=== PATIENT | male | born 1945 | race Caucasian/White ===

== ENCOUNTER 2018-07-03 11:50 | Observation (INO) | payer MEDICARE, OTHER ==
[~2018-07-03] VITALS: Ht 175.3 cm; Wt 100.0 kg
[~2018-07-03 11:50] MED LIST: ADV50100 IH; ATOR10TA87 PO; CARV25TA2 PO; CLON-529 PO; DILT180C10 PO; DILT90CA PO; EPLE25TA10 PO; FLUT16SP26 BOTHNARES; LOSA100T57 PO; PANT40SU2 PO; POTA20TA19 PO; SYN0.088T PO; TRIA1CAP6 PO
[2018-07-03 12:26] LABS: BASOPHILS # (AUTO) 0.1 X10'3 (0-0.2); BASOPHILS % (AUTO) 0.7 % (0-1); EOSINOPHILS # (AUTO) 0.2 X10'3 (0-0.9); EOSINOPHILS % (AUTO) 3.4 % (0-6); HEMOGLOBIN 14.1 g/dl (14.0-17.9); LYMPHOCYTES # (AUTO) 1.2 X10'3 (1.1-4.8); LYMPHOCYTES % (AUTO) 17.5 % (21-51); MEAN CORPUSCULAR HEMOGLOBIN 30.4 PG (27.0-31.0); MEAN CORPUSCULAR HGB CONC 33.5 % (33.0-36.5); MEAN CORPUSCULAR VOLUME 90.7 FL (78-98); MEAN PLATELET VOLUME 8.6 FL (7.4-10.4); MONOCYTES # (AUTO) 0.5 X10'3 (0-0.9); MONOCYTES % (AUTO) 7.2 % (2-12); NEUTROPHILS # (AUTO) 4.9 X10'3 (1.8-7.7); NEUTROPHILS % (AUTO) 71.2 % (42-75); PLATELET COUNT 234 X10'3 (140-440); RED BLOOD COUNT 4.64 X10'6 (4.70-6.10); RED CELL DISTRIBUTION WIDTH 14.3 % (11.5-14.5); WHITE BLOOD COUNT 6.9 X10'3 (4.5-11.0)
[2018-07-03 12:38] LABS: PROTHROMBIN TIME 10.6 SECONDS (9.0-12.0)
[2018-07-03 12:39] LABS: PARTIAL THROMBOPLASTIN TIME 31 SECONDS (22-32)
[2018-07-03 12:41] LABS: ALANINE AMINOTRANSFERASE 21 U/L (12-78); ALBUMIN 3.4 G/DL (3.4-5.0); ALBUMIN/GLOBULIN RATIO 0.9 (1.1-1.5); ALKALINE PHOSPHATASE 124 IU/L (46-116); ANION GAP 12 (8-16); ASPARTATE AMINO TRANSFERASE 15 U/L (10-37); BILIRUBIN,TOTAL 0.6 MG/DL (0.1-1.0); BLOOD UREA NITROGEN 19 MG/DL (7-18); BUN/CREATININE RATIO 14.5 (5.4-32.0); CALCIUM 8.6 MG/DL (8.5-10.1); CHLORIDE 108 MMOL/L (99-107); CREATININE 1.31 MG/DL (0.60-1.10); GLUCOSE 142 MG/DL (70-104); SODIUM 146 MMOL/L (135-145); TOTAL CARBON DIOXIDE 26.4 MMOL/L (24-32); TOTAL PROTEIN 7.1 G/DL (6.4-8.2); eGFR 54 ML/MIN
[2018-07-03] MEDS ORDERED: potassium Cl 20 mEq SR tablet PO STA (12:42)
[2018-07-03 12:43] LABS: POTASSIUM 2.5 MMOL/L (3.5-5.1)
[2018-07-03] MEDS ORDERED: magnesium 2GM in 50ml NS 50 ML IV ONE (12:45)
[2018-07-03] MEDS ORDERED: ondansetron/PF 4mg/2ml inj IV ONE (12:55)
[2018-07-03] MEDS ORDERED: normal saline 1000ml 1,000 ML IV ONE (12:55)
[2018-07-03] MEDS ORDERED: ondansetron 4mg rapidly disintigrating tab PO ONE (12:55)
[2018-07-03 13:12] LABS: CLARITY,URINE CLEAR (Clear); COLOR,URINE STRAW (Yellow); GLUCOSE, URINE NEGATIVE (Neg); KETONES,URINE NEGATIVE (Neg); LEUKOCYTE ESTERASE ,URINE NEGATIVE (Neg); NITRITES, URINE NEGATIVE (Neg); OCCULT BLOOD,URINE TRACE-INTACT (Neg); PROTEIN,URINE 100 mg/dl (Neg); UROBILINOGEN,URINE 0.2 E.U/dL (0.2-1.0)
[2018-07-03 13:15] LABS: UA COLLECTION TYPE URINAL
[2018-07-03] MEDS ORDERED: proCHLORperazine 10 MG/2 ml inj IV ONE (13:20)
[2018-07-03] MEDS ORDERED: meclizine 12.5mg tablet PO ONE (13:20)
[2018-07-03 13:27] LABS: BACTERIA,URINE FEW /HPF (Neg); RBC,URINE 0-2 /HPF (0-2); SQUAMOUS EPITHELIAL CELL,UR FEW /LPF (FEW); WBC,URINE 0-4 /HPF (0-4)
[2018-07-03 13:33] LABS: MAGNESIUM 1.4 MG/DL (1.5-2.4)
[2018-07-03] MEDS: potassium 10mEq/100ml NS w/LIDOcaine (10mg/bag) IV SCH ×2 (13:40→15:38)
--- NOTE | 2018-07-03 13:50 | NUR ---
ASSISTING RN WITH PT CARE, PT IS RESTING QUIETLY ON GURNEY, NO N/V AT THIS TIME, HAVE MEDICATED PT PER MD ORDER, WILL HOLD PO MED FOR NOW,
--- NOTE | 2018-07-03 13:52 | NUR ---
GAVE PT WARM BLANKET AND EMESIS BAG, REPORT TO DEVAN HILL
[2018-07-03] MEDS ORDERED: iohexol 350MG/ML 100ml bottle IV ONE (14:45)
--- NOTE | 2018-07-03 14:45 | NUR ---
PATIENT STOOD BY SIDE OF BED WITH STANDBY ASSIST, PATIENT DENIED DIZZYNESS, SKINNER CHEST PAIN
--- NOTE | 2018-07-03 14:47 | NUR ---
PATIENT DENIES PHOTOPHOBIA AT THIS, SUSANNE HEIN RN AT BEDSIDE
--- NOTE | 2018-07-03 14:52 | NUR ---
TOP CT SCAN WITH STROKE LIZ RECIO
[2018-07-03] MEDS ORDERED: clopidogrel 300mg tablet PO ONE (15:40)
--- NOTE | 2018-07-03 15:40 | NUR ---
RELIEVING RN FOR BREAK, PT IS RESTING QUIETLY ON GURNEY, RESP EVEN AND UNLABORED
--- NOTE | 2018-07-03 15:53 | NUR ---
pt up at bedside to use urinal, no assist needed, no dizziness, no lightheadedness, pt able to stand without assist
[2018-07-03 16:26] VITALS: BP 171/97
--- NOTE | 2018-07-03 16:30 | NUR ---
PATIENT STOOD UP AT BEDSIDE TO URINATE DENIED DIZZYNESS, SKINNER, NAUSEA, BLURRED VISION PATIENT HAS BEEN UP TO URINATE STANDING AT BEDSIDE 4 TIMES WITH STANDBY ASSIST VOIDED 200 ML CLEAR BARELY YELLOW URINE EACH TIME TOTAL 1 LITER OUT PLUS LARGE INCONTINENCE WHEN BACK FROM CT SCAN WITH STROKE RN
[2018-07-03] MEDS ORDERED: ACET-2119 PO (16:52)
[2018-07-03] MEDS ORDERED: FLEC100T2 PO (16:52)
[2018-07-03] MEDS ORDERED: LEVO100T9 PO (16:52)
[2018-07-03] MEDS ORDERED: ALBU8.5H8 IH (16:52)
[2018-07-03] MEDS ORDERED: FURO20TA4 PO (16:52)
[2018-07-03] MEDS ORDERED: CHOL400T14 PO (16:52)
[2018-07-03] MEDS ORDERED: normal saline 1000ml 1,000 ML IV SCH (17:43)
[2018-07-03] MEDS ORDERED: potassium Cl 40MEQ/NS 500ml 500 ML IV PRN ×2 (17:45)
[2018-07-03] MEDS ORDERED: mag hydrox/Alum hydrox/simeth 30ml oral suspension PO PRN (17:45)
[2018-07-03] MEDS ORDERED: ondansetron/PF 4mg/2ml inj IV PRN (17:45)
[2018-07-03] MEDS ORDERED: potassium Cl 20 mEq SR tablet PO PRN ×2 (17:45)
[2018-07-03] MEDS ORDERED: magnesium Cl slow-release 64mg tablet PO PRN (17:45)
[2018-07-03] MEDS ORDERED: non-formulary drug (Albuterol Sulfate (Proair Hfa) 2 PUFFS) IH PRN (17:45)
[2018-07-03] MEDS ORDERED: magnesium 2GM in 50ml NS 50 ML IV PRN (17:45)
[2018-07-03] MEDS ORDERED: magnesium 4gm in 100ml NS 100 ML IV PRN (17:45)
[2018-07-03] MEDS ORDERED: acetaminophen 325mg tablet PO PRN ×2 (17:45)
[2018-07-03] MEDS ORDERED: magnesium hydroxide 30ml (MOM) UD suspension PO PRN (17:45)
--- NOTE | 2018-07-03 17:54 | NUR ---
DR ESCOBAR IN ROOM AND ASKED ME TO AMBULATE PATIENT. MARIAJOSE HILL AMBULATED WITH PULSE OX ON WITH DR ESCOBAR PRESENT I WAS BEING RELIEVED FOR BREAK
[2018-07-03] MEDS ORDERED: albuterol 2.5 MG/3 ML nebule NEB PRN (18:05)
--- NOTE | 2018-07-03 18:21 | NUR ---
DR ESCOBAR INFORMED PT WAS LEAVING AMA, DR GREEN INTO PT ROOM SPOKE WITH PT ABOUT LEAVING, PT SIGNED AMA, SPOUSE AT BEDSIDE TO TRANSPORT PT HOME, PT STABLE WITH STEADY GAIT AMBULATED OUT TO CAR, CHARGE KEVIN MADE AWARE OF PT LEAVING AMA.
[2018-07-03] MEDS ORDERED: albuterol 2.5 MG/3 ML nebule NEB SCH (19:00)
[2018-07-03] MEDS ORDERED: carVEDilol 12.5mg tablet PO SCH (20:00)
[2018-07-03] MEDS ORDERED: non-formulary drug (Fluticasone/Salmeterol* (Advair 100-50 Diskus*) 1 INH) IH SCH (20:00)
[2018-07-03] MEDS ORDERED: non-formulary drug (Carvedilol 1 TABLET) PO SCH (20:00)
[2018-07-03] MEDS ORDERED: cloNIDine 0.1 mg tablet PO SCH (20:00)
[2018-07-03] MEDS ORDERED: FLECAINIDE ACETATE PO SCH (20:00)
[2018-07-03] MEDS ORDERED: heparin, porcine 5000 units/ml vial SQ SCH (20:00)
[2018-07-03] MEDS ORDERED: flecainide 50mg tablet PO SCH (20:00)
[2018-07-03] MEDS ORDERED: BUDESONIDE 0.25 MG/2 ML AMPUL.NEB IH SCH (21:00)
[2018-07-03] MEDS ORDERED: acetaminophen 325mg tablet PO SCH (21:00)
[2018-07-03] MEDS ORDERED: atorvastatin 10mg tablet PO SCH (21:00)
[2018-07-04] MEDS ORDERED: pantoprazole 40mg Tablet.DR PO SCH (07:30)
[2018-07-04] MEDS ORDERED: DILTIAZEM HCL 180 MG PO SCH (08:00)
[2018-07-04] MEDS ORDERED: diltiazem CD 180mg cap (once-daily) PO SCH (08:00)
[2018-07-04] MEDS ORDERED: non-formulary drug (Pantoprazole Sodium (Protonix) 40 MG) PO SCH (08:00)
[2018-07-04] MEDS ORDERED: furosemide 20MG tablet PO SCH (08:00)
[2018-07-04] MEDS ORDERED: K and/or MAG REPLACEMENT MC SCH (08:00)
[2018-07-04] MEDS ORDERED: levoTHYROXINE 100mcg tablet PO SCH (08:00)
[2018-07-04] MEDS ORDERED: EPLERENONE 50 MG PO SCH ×2 (08:00)
[2018-07-04] MEDS ORDERED: losartan 50mg tablet PO SCH (08:00)
[2018-07-04] MEDS ORDERED: LOSARTAN POTASSIUM PO SCH (08:00)
== END 2018-07-03 18:35 | disposition left against medical advice (07) ==
LOC: ER 11:50 → ED HOLD 17:43
PROVIDERS: ADMIT Internal Medicine; ATTEND Internal Medicine
DX: R42 Dizziness and giddiness (principal); E87.6 Hypokalemia; E78.5 Hyperlipidemia, unspecified; E83.42 Hypomagnesemia; I13.0 Hypertensive heart and chronic kidney disease with heart failure and stage 1 through stage 4 chronic kidney disease, or unspecified chronic kidney disease; I50.9 Heart failure, unspecified; N18.3 Chronic kidney disease, stage 3 (moderate); I48.91 Unspecified atrial fibrillation; J45.909 Unspecified asthma, uncomplicated; I25.10 Atherosclerotic heart disease of native coronary artery without angina pectoris; H53.2 Diplopia
CPT/HCPCS: 36415; 70496; 70498; 71045; 80053; 81001; 83735; 83880; 84484; 85025; 85610; 85730; 93005; 96365; 96368; 96375; 99284; G0378; J0780; J2405; J3475; J3480; J8597; Q9967

== ENCOUNTER 2019-02-20 13:35 | Emergency (ER) | payer MEDICARE, OTHER ==
[~2019-02-20] VITALS: Ht 175.3 cm; Wt 98.0 kg
[~2019-02-20 13:35] MED LIST changes: +ACET-2119 PO; +ALBU8.5H8 IH; +CHOL400T14 PO; -DILT90CA PO; +FLEC100T2 PO; +FURO20TA4 PO; +LEVO100T9 PO; -SYN0.088T PO; -TRIA1CAP6 PO
[2019-02-20 14:14] LABS: BASOPHILS # (AUTO) 0.1 X10'3 (0-0.2); BASOPHILS % (AUTO) 0.6 % (0-1); EOSINOPHILS # (AUTO) 0.1 X10'3 (0-0.9); EOSINOPHILS % (AUTO) 1.3 % (0-6); HEMOGLOBIN 14.8 g/dl (14.0-17.9); LYMPHOCYTES % (AUTO) 10.9 % (21-51); MEAN CORPUSCULAR HEMOGLOBIN 30.2 PG (27.0-31.0); MEAN CORPUSCULAR HGB CONC 32.9 g/dL (33.0-36.5); MEAN CORPUSCULAR VOLUME 91.7 FL (78-98); MONOCYTES # (AUTO) 0.6 X10'3 (0-0.9); MONOCYTES % (AUTO) 6.1 % (2-12); NEUTROPHILS # (AUTO) 7.3 X10'3 (1.8-7.7); NEUTROPHILS % (AUTO) 81.1 % (42-75); PLATELET COUNT 226 X10'3 (140-440); RED BLOOD COUNT 4.91 X10'6 (4.70-6.10); RED CELL DISTRIBUTION WIDTH 14.1 % (11.5-14.5)
[2019-02-20 14:18] LABS: CLARITY,URINE CLOUDY (Clear); COLOR,URINE RED (Yellow); GLUCOSE, URINE NEGATIVE (Neg); KETONES,URINE TRACE mg/dl (Neg); LEUKOCYTE ESTERASE ,URINE LARGE (Neg); OCCULT BLOOD,URINE LARGE (Neg); PROTEIN,URINE 100 mg/dl (Neg)
[2019-02-20 14:19] LABS: UA COLLECTION TYPE VOIDED
[2019-02-20 14:22] LABS: NITRITES, URINE POSITIVE (Neg)
[2019-02-20 14:34] LABS: ALANINE AMINOTRANSFERASE 21 U/L (12-78); ALBUMIN 3.8 G/DL (3.4-5.0); ALBUMIN/GLOBULIN RATIO 1.1 (1.1-1.5); ALKALINE PHOSPHATASE 142 IU/L (46-116); ANION GAP 7 (8-16); ASPARTATE AMINO TRANSFERASE 10 U/L (10-37); BILIRUBIN,TOTAL 0.5 MG/DL (0.1-1.0); BLOOD UREA NITROGEN 20 MG/DL (7-18); CALCIUM 9.3 MG/DL (8.5-10.1); CHLORIDE 109 MMOL/L (99-107); CREATININE 1.33 MG/DL (0.60-1.10); GLUCOSE 119 MG/DL (70-104); SODIUM 143 MMOL/L (135-145); TOTAL CARBON DIOXIDE 26.7 MMOL/L (24-32); TOTAL PROTEIN 7.4 G/DL (6.4-8.2); eGFR 53 ML/MIN
[2019-02-20 14:34] LABS: RBC,URINE TNTC /HPF (0-2); WBC,URINE 30-50 /HPF (0-4)
[2019-02-20 14:35] LABS: WBC CLUMPS,URINE MODERATE /HPF (NEGATIVE)
[2019-02-20 14:40] LABS: BACTERIA,URINE FEW /HPF (Neg); SQUAMOUS EPITHELIAL CELL,UR FEW /LPF (FEW)
[2019-02-20 14:42] LABS: TRANSITIONAL EPI CELLS,URINE FEW /HPF
[2019-02-20] MEDS ORDERED: CefTRIAXone/D5W-Rocephin 1gm 50 ML IV ONE (15:50)
[2019-02-20] MEDS ORDERED: CEPH250T PO (15:53)
[2019-02-20 17:17] VITALS: BP 155/98
== END 2019-02-20 17:37 | disposition home or self-care (01) ==
LOC: ER 13:36
DX: N39.0 Urinary tract infection, site not specified (principal); R31.9 Hematuria, unspecified; N32.89 Other specified disorders of bladder; I48.91 Unspecified atrial fibrillation; I11.0 Hypertensive heart disease with heart failure; I50.9 Heart failure, unspecified; J45.909 Unspecified asthma, uncomplicated; Z98.890 Other specified postprocedural states; Z88.6 Allergy status to analgesic agent; Z79.899 Other long term (current) drug therapy
CPT/HCPCS: 36415; 80053; 81001; 83605; 85025; 85610; 87040; 87088; 96365; 99283; J0696

== ENCOUNTER 2019-03-07 02:57 | Emergency (ER) | payer MEDICARE, OTHER ==
[~2019-03-07] VITALS: Ht 177.8 cm; Wt 90.9 kg
--- NOTE | 2019-03-07 03:43 | NUR ---
bladder scan done post urination. 999mls. dr. nam notified. he wants to a irizarry cath placed waiting for that order.
[2019-03-07 04:30] LABS: BASOPHILS # (AUTO) 0.1 X10'3 (0-0.2); BASOPHILS % (AUTO) 0.6 % (0-1); EOSINOPHILS # (AUTO) 0.1 X10'3 (0-0.9); EOSINOPHILS % (AUTO) 0.5 % (0-6); HEMATOCRIT 44.8 % (42.0-52.0); LYMPHOCYTES % (AUTO) 8.5 % (21-51); MEAN CORPUSCULAR HEMOGLOBIN 30.7 PG (27.0-31.0); MEAN CORPUSCULAR HGB CONC 33.4 g/dL (33.0-36.5); MEAN CORPUSCULAR VOLUME 91.8 FL (78-98); MEAN PLATELET VOLUME 8.5 FL (7.4-10.4); NEUTROPHILS # (AUTO) 9.4 X10'3 (1.8-7.7); NEUTROPHILS % (AUTO) 81.4 % (42-75); PLATELET COUNT 213 X10'3 (140-440); RED BLOOD COUNT 4.88 X10'6 (4.70-6.10); RED CELL DISTRIBUTION WIDTH 14.3 % (11.5-14.5); WHITE BLOOD COUNT 11.6 X10'3 (4.5-11.0)
[2019-03-07 04:32] LABS: ALANINE AMINOTRANSFERASE 29 U/L (12-78); ALBUMIN 3.7 G/DL (3.4-5.0); ALKALINE PHOSPHATASE 153 IU/L (46-116); ANION GAP 11 (8-16); ASPARTATE AMINO TRANSFERASE 14 U/L (10-37); BILIRUBIN,TOTAL 0.8 MG/DL (0.1-1.0); BLOOD UREA NITROGEN 17 MG/DL (7-18); BUN/CREATININE RATIO 12.2 (5.4-32.0); CALCIUM 9.2 MG/DL (8.5-10.1); CHLORIDE 109 MMOL/L (99-107); CREATININE 1.39 MG/DL (0.60-1.10); GLUCOSE 111 MG/DL (70-104); POTASSIUM 3.3 MMOL/L (3.5-5.1); SODIUM 142 MMOL/L (135-145); TOTAL PROTEIN 7.4 G/DL (6.4-8.2); eGFR 50 ML/MIN
[2019-03-07 05:26] LABS: CLARITY,URINE CLOUDY (Clear); COLOR,URINE RED (Yellow); GLUCOSE, URINE NEGATIVE (Neg); KETONES,URINE NEGATIVE (Neg); LEUKOCYTE ESTERASE ,URINE TRACE (Neg); NITRITES, URINE NEGATIVE (Neg); OCCULT BLOOD,URINE LARGE (Neg); PROTEIN,URINE 100 mg/dl (Neg); UA COLLECTION TYPE CLN CATCH MIDSTREAM; UROBILINOGEN,URINE 0.2 E.U/dL (0.2-1.0)
[2019-03-07 05:37] LABS: BACTERIA,URINE NONE SEEN /HPF (Neg); RBC,URINE TNTC /HPF (0-2)
[2019-03-07 05:38] LABS: MUCUS STRANDS NONE SEEN /LPF (Neg); SQUAMOUS EPITHELIAL CELL,UR NONE SEEN /LPF (FEW)
[2019-03-07 05:52] VITALS: BP 162/95
== END 2019-03-07 05:54 | disposition home or self-care (01) ==
LOC: ER 02:58
DX: R33.9 Retention of urine, unspecified (principal); R31.9 Hematuria, unspecified; I11.0 Hypertensive heart disease with heart failure; I50.9 Heart failure, unspecified; J45.909 Unspecified asthma, uncomplicated; Z98.890 Other specified postprocedural states; Z88.6 Allergy status to analgesic agent; Z79.899 Other long term (current) drug therapy
CPT/HCPCS: 36415; 51702; 80053; 81001; 85025; 87088; 99284

== ENCOUNTER 2019-08-03 03:16 | Emergency (ER) | payer MEDICARE, OTHER ==
[~2019-08-03] VITALS: Ht 177.8 cm; Wt 90.9 kg
[2019-08-03] MEDS ORDERED: magnesium 2GM in 50ml NS 50 ML IV ONE (03:20)
[2019-08-03] MEDS ORDERED: diltiazem 5mg/ml 5ml inj. IV ONE (03:20)
[2019-08-03 03:56] LABS: BASOPHILS # (AUTO) 0.1 X10'3 (0-0.2); BASOPHILS % (AUTO) 0.9 % (0-1); EOSINOPHILS # (AUTO) 0.1 X10'3 (0-0.9); EOSINOPHILS % (AUTO) 1.6 % (0-6); HEMATOCRIT 40.8 % (42.0-52.0); HEMOGLOBIN 13.5 g/dl (14.0-17.9); LYMPHOCYTES # (AUTO) 1.5 X10'3 (1.1-4.8); LYMPHOCYTES % (AUTO) 23.3 % (21-51); MEAN CORPUSCULAR HEMOGLOBIN 29.6 PG (27.0-31.0); MEAN CORPUSCULAR HGB CONC 33.2 g/dL (33.0-36.5); MEAN CORPUSCULAR VOLUME 89.2 FL (78-98); MEAN PLATELET VOLUME 8.4 FL (7.4-10.4); MONOCYTES # (AUTO) 0.5 X10'3 (0-0.9); MONOCYTES % (AUTO) 8.1 % (2-12); NEUTROPHILS # (AUTO) 4.4 X10'3 (1.8-7.7); NEUTROPHILS % (AUTO) 66.1 % (42-75); PLATELET COUNT 291 X10'3 (140-440); RED BLOOD COUNT 4.58 X10'6 (4.70-6.10); RED CELL DISTRIBUTION WIDTH 13.9 % (11.5-14.5); WHITE BLOOD COUNT 6.6 X10'3 (4.5-11.0)
[2019-08-03 04:10] LABS: ALANINE AMINOTRANSFERASE 25 U/L (12-78); ALBUMIN 3.4 G/DL (3.4-5.0); ALBUMIN/GLOBULIN RATIO 0.8 (1.1-1.5); ALKALINE PHOSPHATASE 241 IU/L (46-116); ANION GAP 12 (8-16); ASPARTATE AMINO TRANSFERASE 20 U/L (10-37); BILIRUBIN,TOTAL 0.4 MG/DL (0.1-1.0); BLOOD UREA NITROGEN 23 MG/DL (7-18); BUN/CREATININE RATIO 15.4 (5.4-32.0); CALCIUM 9.8 MG/DL (8.5-10.1); CHLORIDE 112 MMOL/L (99-107); CREATININE 1.49 MG/DL (0.60-1.10); GLUCOSE 96 MG/DL (70-104); SODIUM 149 MMOL/L (135-145); TOTAL CARBON DIOXIDE 25.5 MMOL/L (24-32); TOTAL PROTEIN 7.9 G/DL (6.4-8.2); eGFR 46 ML/MIN
[2019-08-03] MEDS ORDERED: potassium 10mEq/100ml NS w/LIDOcaine (10mg/bag) IV ONE (04:15)
[2019-08-03] MEDS ORDERED: normal saline 1000ML IV soln IVB ONE (04:15)
[2019-08-03] MEDS ORDERED: potassium Cl 20 mEq SR tablet PO ONE (04:15)
[2019-08-03 04:18] LABS: MAGNESIUM 1.9 MG/DL (1.5-2.4)
[2019-08-03] MEDS ORDERED: potassium Cl 10 mEq/100mL bag IV ONE (04:20)
[2019-08-03] MEDS ORDERED: POTA20TA19 PO (04:23)
[2019-08-03 04:43] LABS: CLARITY,URINE CLEAR (Clear); COLOR,URINE STRAW (Yellow); GLUCOSE, URINE NEGATIVE (Neg); KETONES,URINE NEGATIVE (Neg); LEUKOCYTE ESTERASE ,URINE SMALL (Neg); NITRITES, URINE NEGATIVE (Neg); OCCULT BLOOD,URINE MODERATE (Neg); PROTEIN,URINE 100 mg/dl (Neg); UA COLLECTION TYPE STRAIGHT CATH; UROBILINOGEN,URINE 0.2 E.U/dL (0.2-1.0)
--- NOTE | 2019-08-03 04:46 | NUR ---
Patient converted from afib to NSR naturally.
[2019-08-03 04:50] LABS: BACTERIA,URINE FEW /HPF (Neg); MUCUS STRANDS NONE SEEN /LPF (Neg); SQUAMOUS EPITHELIAL CELL,UR FEW /LPF (FEW); WBC CLUMPS,URINE FEW /HPF (NEGATIVE)
[2019-08-03 06:42] VITALS: BP 170/95
== END 2019-08-03 07:59 | disposition home or self-care (01) ==
LOC: ER 03:16
DX: I48.91 Unspecified atrial fibrillation (principal); E87.6 Hypokalemia; I11.0 Hypertensive heart disease with heart failure; I50.9 Heart failure, unspecified; J45.909 Unspecified asthma, uncomplicated; E05.90 Thyrotoxicosis, unspecified without thyrotoxic crisis or storm; Z88.6 Allergy status to analgesic agent; Z79.899 Other long term (current) drug therapy
CPT/HCPCS: 36415; 71045; 80053; 81001; 83735; 83880; 84484; 85025; 93005; 96365; 96366; 96368; 99285; J3475; J3480; J7030; 99284

== ENCOUNTER 2019-08-17 03:52 | Emergency (ER) | payer MEDICARE, OTHER ==
[~2019-08-17] VITALS: Ht 177.8 cm; Wt 90.0 kg
[2019-08-17] MEDS ORDERED: hydrALAZINE 20mg/ml inj. IV ONE (04:10)
[2019-08-17 04:24] LABS: BASOPHILS # (AUTO) 0.1 X10'3 (0-0.2); BASOPHILS % (AUTO) 0.9 % (0-1); EOSINOPHILS # (AUTO) 0.1 X10'3 (0-0.9); EOSINOPHILS % (AUTO) 1.5 % (0-6); HEMATOCRIT 42.7 % (42.0-52.0); HEMOGLOBIN 14.1 g/dl (14.0-17.9); LYMPHOCYTES # (AUTO) 1.7 X10'3 (1.1-4.8); LYMPHOCYTES % (AUTO) 26.1 % (21-51); MEAN CORPUSCULAR HEMOGLOBIN 29.3 PG (27.0-31.0); MEAN CORPUSCULAR VOLUME 88.8 FL (78-98); MEAN PLATELET VOLUME 8.2 FL (7.4-10.4); MONOCYTES # (AUTO) 0.5 X10'3 (0-0.9); NEUTROPHILS # (AUTO) 4.1 X10'3 (1.8-7.7); NEUTROPHILS % (AUTO) 63.5 % (42-75); PLATELET COUNT 276 X10'3 (140-440); RED BLOOD COUNT 4.81 X10'6 (4.70-6.10); RED CELL DISTRIBUTION WIDTH 13.9 % (11.5-14.5); WHITE BLOOD COUNT 6.4 X10'3 (4.5-11.0)
[2019-08-17 04:41] LABS: ALANINE AMINOTRANSFERASE 25 U/L (12-78); ALBUMIN 3.7 G/DL (3.4-5.0); ALBUMIN/GLOBULIN RATIO 0.8 (1.1-1.5); ALKALINE PHOSPHATASE 240 IU/L (46-116); ANION GAP 9 (8-16); ASPARTATE AMINO TRANSFERASE 18 U/L (10-37); BILIRUBIN,TOTAL 0.4 MG/DL (0.1-1.0); BLOOD UREA NITROGEN 25 MG/DL (7-18); BUN/CREATININE RATIO 14.8 (5.4-32.0); CALCIUM 9.8 MG/DL (8.5-10.1); CHLORIDE 110 MMOL/L (99-107); CREATININE 1.69 MG/DL (0.60-1.10); GLUCOSE 95 MG/DL (70-104); POTASSIUM 3.3 MMOL/L (3.5-5.1); SODIUM 145 MMOL/L (135-145); TOTAL CARBON DIOXIDE 26.4 MMOL/L (24-32); TOTAL PROTEIN 8.1 G/DL (6.4-8.2); eGFR 40 ML/MIN
[2019-08-17 04:47] VITALS: BP 168/72
[2019-08-17 04:47] LABS: MAGNESIUM 1.7 MG/DL (1.5-2.4)
== END 2019-08-17 05:19 | disposition home or self-care (01) ==
LOC: ER 03:54
DX: I13.0 Hypertensive heart and chronic kidney disease with heart failure and stage 1 through stage 4 chronic kidney disease, or unspecified chronic kidney disease (principal); N18.9 Chronic kidney disease, unspecified; I48.91 Unspecified atrial fibrillation; I50.9 Heart failure, unspecified; J45.909 Unspecified asthma, uncomplicated; Z85.9 Personal history of malignant neoplasm, unspecified; Z98.890 Other specified postprocedural states; Z88.6 Allergy status to analgesic agent; Z88.8 Allergy status to other drugs, medicaments and biological substances; Z79.899 Other long term (current) drug therapy
CPT/HCPCS: 36415; 71045; 80053; 83735; 83880; 85025; 93005; 96374; 99285; J0360; 84484

== ENCOUNTER 2019-11-21 19:15 | Emergency (ER) | payer MEDICARE, OTHER ==
[~2019-11-21] VITALS: Ht 175.3 cm; Wt 80.3 kg
[~2019-11-21 19:15] MED LIST changes: -CLON-529 PO; +CLON0.2T PO; +DILT-35 PO; -DILT180C10 PO; -EPLE25TA10 PO; +EPLE25TA4 PO; +FURO-150 PO; -FURO20TA4 PO; +LEVO250T58 PO; -LOSA100T57 PO
[2019-11-21 20:13] LABS: BASOPHILS # (AUTO) 0.1 X10'3 (0-0.2); BASOPHILS % (AUTO) 0.8 % (0-1); EOSINOPHILS % (AUTO) 0.1 % (0-6); HEMATOCRIT 28.6 % (42.0-52.0); HEMOGLOBIN 9.2 g/dl (14.0-17.9); LYMPHOCYTES # (AUTO) 1.5 X10'3 (1.1-4.8); LYMPHOCYTES % (AUTO) 8.8 % (21-51); MEAN CORPUSCULAR HEMOGLOBIN 29.8 PG (27.0-31.0); MEAN CORPUSCULAR HGB CONC 32.2 g/dL (33.0-36.5); MEAN CORPUSCULAR VOLUME 92.4 FL (78-98); MEAN PLATELET VOLUME 7.9 FL (7.4-10.4); MONOCYTES # (AUTO) 0.8 X10'3 (0-0.9); MONOCYTES % (AUTO) 4.6 % (2-12); NEUTROPHILS # (AUTO) 14.6 X10'3 (1.8-7.7); NEUTROPHILS % (AUTO) 85.7 % (42-75); PLATELET COUNT 386 X10'3 (140-440); RED BLOOD COUNT 3.09 X10'6 (4.70-6.10); RED CELL DISTRIBUTION WIDTH 18.6 % (11.5-14.5)
[2019-11-21 20:22] LABS: ALANINE AMINOTRANSFERASE 21 U/L (12-78); ALBUMIN 2.2 G/DL (3.4-5.0); ALBUMIN/GLOBULIN RATIO 0.5 (1.1-1.5); ALKALINE PHOSPHATASE 384 IU/L (46-116); ANION GAP 8 (8-16); ASPARTATE AMINO TRANSFERASE 18 U/L (10-37); BILIRUBIN,TOTAL 0.4 MG/DL (0.1-1.0); BLOOD UREA NITROGEN 33 MG/DL (7-18); BUN/CREATININE RATIO 11.6 (5.4-32.0); CALCIUM 10.2 MG/DL (8.5-10.1); CHLORIDE 110 MMOL/L (99-107); CREATININE 2.85 MG/DL (0.60-1.10); GLUCOSE 110 MG/DL (70-104); POTASSIUM 4.2 MMOL/L (3.5-5.1); SODIUM 146 MMOL/L (135-145); TOTAL CARBON DIOXIDE 27.9 MMOL/L (24-32); TOTAL PROTEIN 6.7 G/DL (6.4-8.2); eGFR 22 ML/MIN
[2019-11-21 20:55] LABS: CLARITY,URINE SLIGHTLY CLOUDY (Clear); COLOR,URINE YELLOW (Yellow); GLUCOSE, URINE NEGATIVE (Neg); KETONES,URINE NEGATIVE (Neg); LEUKOCYTE ESTERASE ,URINE SMALL (Neg); NITRITES, URINE NEGATIVE (Neg); OCCULT BLOOD,URINE LARGE (Neg); PROTEIN,URINE 100 mg/dl (Neg); UROBILINOGEN,URINE 0.2 E.U/dL (0.2-1.0)
[2019-11-21 21:00] LABS: BACTERIA,URINE FEW /HPF (Neg); RBC,URINE 50-100 /HPF (0-2); SQUAMOUS EPITHELIAL CELL,UR FEW /LPF (FEW); UA COLLECTION TYPE VOIDED; WBC,URINE 0-4 /HPF (0-4)
[2019-11-21 21:34] VITALS: BP 158/93
== END 2019-11-21 21:30 | disposition home or self-care (01) ==
LOC: ER 19:16
DX: R31.9 Hematuria, unspecified (principal); C67.9 Malignant neoplasm of bladder, unspecified; I10 Essential (primary) hypertension; D72.829 Elevated white blood cell count, unspecified; I48.91 Unspecified atrial fibrillation; I50.9 Heart failure, unspecified; I11.0 Hypertensive heart disease with heart failure; J45.909 Unspecified asthma, uncomplicated; Z85.9 Personal history of malignant neoplasm, unspecified; Z98.890 Other specified postprocedural states; Z88.6 Allergy status to analgesic agent; Z88.8 Allergy status to other drugs, medicaments and biological substances; Z79.899 Other long term (current) drug therapy
CPT/HCPCS: 80053; 81001; 85025; 87088; 99283

== ENCOUNTER 2019-11-23 21:55 | Emergency (ER) | payer MEDICARE, OTHER ==
[~2019-11-23] VITALS: Ht 172.7 cm; Wt 83.6 kg
--- NOTE | 2019-11-23 22:18 | NUR ---
X RAY AT BEDSIDE
[2019-11-23 22:28] LABS: BASOPHILS % (AUTO) 0.2 % (0-1); EOSINOPHILS % (AUTO) 0.1 % (0-6); HEMATOCRIT 28.6 % (42.0-52.0); HEMOGLOBIN 9.1 g/dl (14.0-17.9); LYMPHOCYTES # (AUTO) 1.3 X10'3 (1.1-4.8); LYMPHOCYTES % (AUTO) 6.7 % (21-51); MEAN CORPUSCULAR HEMOGLOBIN 29.8 PG (27.0-31.0); MEAN CORPUSCULAR HGB CONC 31.9 g/dL (33.0-36.5); MEAN CORPUSCULAR VOLUME 93.5 FL (78-98); MEAN PLATELET VOLUME 7.7 FL (7.4-10.4); MONOCYTES % (AUTO) 5.2 % (2-12); NEUTROPHILS # (AUTO) 16.5 X10'3 (1.8-7.7); NEUTROPHILS % (AUTO) 87.8 % (42-75); PLATELET COUNT 406 X10'3 (140-440); RED BLOOD COUNT 3.06 X10'6 (4.70-6.10); WHITE BLOOD COUNT 18.8 X10'3 (4.5-11.0)
[2019-11-23] MEDS ORDERED: FURO-150 PO (22:40)
[2019-11-23 22:42] LABS: ALANINE AMINOTRANSFERASE 32 U/L (12-78); ALBUMIN 2.3 G/DL (3.4-5.0); ALBUMIN/GLOBULIN RATIO 0.5 (1.1-1.5); ALKALINE PHOSPHATASE 390 IU/L (46-116); ANION GAP 6 (8-16); ASPARTATE AMINO TRANSFERASE 23 U/L (10-37); BILIRUBIN,TOTAL 0.4 MG/DL (0.1-1.0); BLOOD UREA NITROGEN 33 MG/DL (7-18); BUN/CREATININE RATIO 11.5 (5.4-32.0); CALCIUM 9.8 MG/DL (8.5-10.1); CHLORIDE 110 MMOL/L (99-107); CREATININE 2.87 MG/DL (0.60-1.10); GLUCOSE 116 MG/DL (70-104); POTASSIUM 4.4 MMOL/L (3.5-5.1); SODIUM 144 MMOL/L (135-145); TOTAL CARBON DIOXIDE 28.5 MMOL/L (24-32); TOTAL PROTEIN 6.5 G/DL (6.4-8.2); eGFR 22 ML/MIN
[2019-11-23 22:48] LABS: ANISOCYTOSIS 1+; HYPOCHROMASIA 1+; PLATELET ESTIMATE NORMAL; STOMATOCYTES 1+
--- NOTE | 2019-11-23 23:14 | NUR ---
KATE PITTMAN) [phone] Addendum: 11/23/19 at 2315 by YOANDY DISREGARD, WRONG PATIENT
--- NOTE | 2019-11-23 23:14 | NUR ---
PATIENT TO GI LAB Addendum: 11/23/19 at 2316 by AFLYNN INCORRECT PATIENT
[2019-11-23 23:25] LABS: CLARITY,URINE CLOUDY (Clear); COLOR,URINE YELLOW (Yellow); GLUCOSE, URINE NEGATIVE (Neg); KETONES,URINE NEGATIVE (Neg); LEUKOCYTE ESTERASE ,URINE MODERATE (Neg); NITRITES, URINE NEGATIVE (Neg); OCCULT BLOOD,URINE LARGE (Neg); PROTEIN,URINE 100 mg/dl (Neg); UROBILINOGEN,URINE 0.2 E.U/dL (0.2-1.0)
[2019-11-23 23:26] LABS: UA COLLECTION TYPE CLN CATCH MIDSTREAM
[2019-11-23 23:29] LABS: BACTERIA,URINE 2+ /HPF (Neg); SQUAMOUS EPITHELIAL CELL,UR FEW /LPF (FEW)
[2019-11-24] MEDS ORDERED: cephalexin 250mg capsule PO ONE (00:30)
[2019-11-24] MEDS ORDERED: furosemide 20MG tablet PO ONE (00:30)
[2019-11-24] MEDS ORDERED: CEPH250T PO (00:30)
[2019-11-24] MEDS ORDERED: SULF-14 PO (00:50)
[2019-11-24] MEDS ORDERED: sulfamethoxazole/trimethoprim DS (800/160mg) tablet PO ONE (00:50)
[2019-11-24 01:25] VITALS: BP 151/94
== END 2019-11-24 01:20 | disposition home or self-care (01) ==
LOC: ER 21:56
DX: I50.9 Heart failure, unspecified (principal); N39.0 Urinary tract infection, site not specified; I48.91 Unspecified atrial fibrillation; I11.0 Hypertensive heart disease with heart failure; J45.909 Unspecified asthma, uncomplicated; Z85.9 Personal history of malignant neoplasm, unspecified; Z98.890 Other specified postprocedural states; Z88.6 Allergy status to analgesic agent; Z88.8 Allergy status to other drugs, medicaments and biological substances; Z79.899 Other long term (current) drug therapy
CPT/HCPCS: 36415; 71045; 80053; 81001; 83880; 84145; 84484; 85025; 87088; 93005; 99285

== ENCOUNTER 2019-12-04 14:37 | Emergency (ER) | payer MEDICARE, OTHER ==
[~2019-12-04] VITALS: Ht 175.3 cm; Wt 81.8 kg
[~2019-12-04 14:37] MED LIST changes: -DILT-35 PO
--- NOTE | 2019-12-04 16:30 | NUR ---
FIDENCIO ON PHONE WITH AIDA
[2019-12-04] MEDS ORDERED: LIDOcaine 2% 10ml TOPICAL JELLY (Urojet) TP ONE (16:40)
[2019-12-04 17:18] VITALS: BP 131/90
== END 2019-12-04 17:37 | disposition home or self-care (01) ==
LOC: ER 14:39
DX: T83.038A Leakage of other urinary catheter, initial encounter (principal); I48.91 Unspecified atrial fibrillation; I50.9 Heart failure, unspecified; I11.0 Hypertensive heart disease with heart failure; J45.909 Unspecified asthma, uncomplicated; Z85.9 Personal history of malignant neoplasm, unspecified; Z49.01 Encounter for fitting and adjustment of extracorporeal dialysis catheter; Z98.890 Other specified postprocedural states
CPT/HCPCS: 51702; 99284

== ENCOUNTER 2019-12-09 11:58 | Inpatient (IN) | payer MEDICARE, OTHER ==
[~2019-12-09] VITALS: Ht 175.3 cm; Wt 80.0 kg
--- NOTE | 2019-12-09 12:13 | NUR ---
Ecchymosis noted to the right wrist, patient reports it was from a recent lab draw.
[2019-12-09 13:12] LABS: BASOPHILS % (AUTO) 0.1 % (0-1); EOSINOPHILS # (AUTO) 0.1 X10'3 (0-0.9); EOSINOPHILS % (AUTO) 0.4 % (0-6); HEMATOCRIT 29.2 % (42.0-52.0); HEMOGLOBIN 9.3 g/dl (14.0-17.9); LYMPHOCYTES # (AUTO) 1.1 X10'3 (1.1-4.8); MEAN CORPUSCULAR HEMOGLOBIN 30.4 PG (27.0-31.0); MEAN CORPUSCULAR HGB CONC 31.9 g/dL (33.0-36.5); MEAN CORPUSCULAR VOLUME 95.1 FL (78-98); MEAN PLATELET VOLUME 8.8 FL (7.4-10.4); MONOCYTES # (AUTO) 1.1 X10'3 (0-0.9); MONOCYTES % (AUTO) 3.9 % (2-12); NEUTROPHILS # (AUTO) 25.3 X10'3 (1.8-7.7); NEUTROPHILS % (AUTO) 91.6 % (42-75); PLATELET COUNT 319 X10'3 (140-440); RED BLOOD COUNT 3.07 X10'6 (4.70-6.10); RED CELL DISTRIBUTION WIDTH 18.4 % (11.5-14.5)
[2019-12-09 13:15] LABS: PARTIAL THROMBOPLASTIN TIME 27 SECONDS (22-32)
[2019-12-09 13:17] LABS: WHITE BLOOD COUNT 27.7 X10'3 (4.5-11.0)
[2019-12-09 13:24] LABS: ALANINE AMINOTRANSFERASE 24 U/L (12-78); ALBUMIN 1.8 G/DL (3.4-5.0); ALBUMIN/GLOBULIN RATIO 0.5 (1.1-1.5); ALKALINE PHOSPHATASE 388 IU/L (46-116); ANION GAP 8 (8-16); ASPARTATE AMINO TRANSFERASE 19 U/L (10-37); BILIRUBIN,TOTAL 0.4 MG/DL (0.1-1.0); BLOOD UREA NITROGEN 35 MG/DL (7-18); BUN/CREATININE RATIO 19.4 (5.4-32.0); CHLORIDE 103 MMOL/L (99-107); GLUCOSE 88 MG/DL (70-104); POTASSIUM 4.6 MMOL/L (3.5-5.1); SODIUM 136 MMOL/L (135-145); TOTAL CARBON DIOXIDE 24.7 MMOL/L (24-32); TOTAL PROTEIN 5.6 G/DL (6.4-8.2); eGFR 37 ML/MIN
[2019-12-09] MEDS ORDERED: normal saline 1000ML IV soln IV ONE (13:25)
[2019-12-09 13:28] LABS: CALCIUM 13.2 MG/DL (8.5-10.1)
[2019-12-09] MEDS ORDERED: levoFLOXACIN-Levaquin 500mg/D5 100 ML IV STA (13:44)
[2019-12-09 14:10] LABS: ANISOCYTOSIS 2+; PLATELET ESTIMATE NORMAL; TOTAL CELLS COUNTED 100; TOXIC GRANULATION 1+
[2019-12-09 14:11] LABS: TOXIC VACUOLATION FEW
--- NOTE | 2019-12-09 14:25 | NUR ---
New drainage bag connected to existing irizarry cath. Pt's cath irrigated, minimal to no return and clots noted in what is aspirated with manual irrigation using sterile technique
--- NOTE | 2019-12-09 14:33 | NUR ---
Pt transported to CT scan via gurney with the side rails raised.
--- NOTE | 2019-12-09 14:51 | NUR ---
Pt returned from CT scan via gurney with the side rails raised.
[2019-12-09 15:18] LABS: CLARITY,URINE CLEAR (Clear); COLOR,URINE STRAW (Yellow); GLUCOSE, URINE NEGATIVE (Neg); KETONES,URINE NEGATIVE (Neg); LEUKOCYTE ESTERASE ,URINE SMALL (Neg); NITRITES, URINE NEGATIVE (Neg); OCCULT BLOOD,URINE MODERATE (Neg); PH,URINE 6.5 (4.8-8.0); PROTEIN,URINE NEGATIVE (Neg); UROBILINOGEN,URINE 0.2 E.U/dL (0.2-1.0)
[2019-12-09 15:19] LABS: UA COLLECTION TYPE OTHER
[2019-12-09 15:25] LABS: BACTERIA,URINE FEW /HPF (Neg); SQUAMOUS EPITHELIAL CELL,UR FEW /LPF (FEW); WBC,URINE 0-4 /HPF (0-4)
[2019-12-09] MEDS ORDERED: pamidronate disodium inj 90 MG in normal saline 500ml IV soln 500 ML IV ONE (15:45)
--- NOTE | 2019-12-09 15:47 | NUR ---
JON SINGLETON, PATIENT'S SON [phone] ([place]) [phone] (RGJU)
[2019-12-09] MEDS ORDERED: ondansetron/PF 4mg/2ml inj IV PRN (15:50)
[2019-12-09] MEDS ORDERED: mag hydrox/Alum hydrox/simeth 30ml oral suspension PO PRN (15:50)
[2019-12-09] MEDS ORDERED: HYDROmorphone inj. 0.5 MG/0.5 ML DISP.SYRIN IV PRN (15:50)
[2019-12-09] MEDS ORDERED: potassium CL 10mEq/100ml bag 100 ML IV PRN ×2 (15:50)
[2019-12-09] MEDS ORDERED: docusate sod 100mg capsule PO PRN (15:50)
[2019-12-09] MEDS ORDERED: magnesium 4gm in 100ml NS 100 ML IV PRN (15:50)
[2019-12-09] MEDS ORDERED: HYDROmorphone 1 mg/ml syringe IV PRN (15:50)
[2019-12-09] MEDS ORDERED: magnesium 2GM in 50ml NS 50 ML IV PRN (15:50)
[2019-12-09] MEDS ORDERED: potassium Cl 20 mEq SR tablet PO PRN (15:50)
[2019-12-09] MEDS ORDERED: acetaminophen 325mg tablet PO PRN (15:50)
[2019-12-09] MEDS ORDERED: LOSA100T57 PO (16:43)
[2019-12-09] MEDS ORDERED: DILT120C91 PO (16:49)
[2019-12-09] MEDS ORDERED: ACET-2971 PO (16:50)
[2019-12-09] MEDS: normal saline 1000ml 1,000 ML IV SCH (17:49)
[2019-12-09] MEDS ORDERED: albuterol 2.5 MG/3 ML nebule NEB PRN (17:55)
[2019-12-09] MEDS: K and/or MAG REPLACEMENT MC SCH (20:00)
[2019-12-09] MEDS: flecainide 50mg tablet PO SCH (20:00)
[2019-12-09] MEDS: diltiazem CD 120mg capsule (once-daily) PO SCH (20:41)
[2019-12-09] MEDS: cloNIDine 0.1 mg tablet PO SCH (20:42)
[2019-12-09] MEDS: atorvastatin 10mg tablet PO SCH (20:43)
[2019-12-09] MEDS: carVEDilol 12.5mg tablet PO SCH (20:43)
--- NOTE | 2019-12-09 20:55 | NUR ---
Attempted to phone report to PCU, receiving RN to phone back to get report.
[2019-12-09 21:45] VITALS: BP 134/89
[2019-12-09] MEDS: levoFLOXACIN-Levaquin 250mg/D5 50 ML IV SCH (23:17)
[2019-12-10] MEDS ORDERED: non-formulary drug (Acetaminophen (Tylenol Arthritis) 2 TAB) PO SCH
[2019-12-10] MEDS: normal saline 1000ml 1,000 ML IV SCH ×3 (01:46→15:32)
[2019-12-10 05:59] LABS: ALANINE AMINOTRANSFERASE 18 U/L (12-78); ALBUMIN 1.5 G/DL (3.4-5.0); ALBUMIN/GLOBULIN RATIO 0.4 (1.1-1.5); ALKALINE PHOSPHATASE 327 IU/L (46-116); ANION GAP 9 (8-16); ASPARTATE AMINO TRANSFERASE 15 U/L (10-37); BILIRUBIN,TOTAL 0.4 MG/DL (0.1-1.0); BLOOD UREA NITROGEN 27 MG/DL (7-18); BUN/CREATININE RATIO 17.1 (5.4-32.0); CHLORIDE 111 MMOL/L (99-107); CREATININE 1.58 MG/DL (0.60-1.10); GLUCOSE 85 MG/DL (70-104); MAGNESIUM 1.3 MG/DL (1.5-2.4); POTASSIUM 3.1 MMOL/L (3.5-5.1); SODIUM 144 MMOL/L (135-145); TOTAL CARBON DIOXIDE 24.3 MMOL/L (24-32); TOTAL PROTEIN 5.1 G/DL (6.4-8.2); eGFR 43 ML/MIN
[2019-12-10 06:00] VITALS: BP 130/76
[2019-12-10 06:03] LABS: BASOPHILS % (AUTO) 0.1 % (0-1); CALCIUM 12.1 MG/DL (8.5-10.1); EOSINOPHILS % (AUTO) 0.1 % (0-6); HEMATOCRIT 28.4 % (42.0-52.0); HEMOGLOBIN 8.9 g/dl (14.0-17.9); LYMPHOCYTES # (AUTO) 0.9 X10'3 (1.1-4.8); LYMPHOCYTES % (AUTO) 2.7 % (21-51); MEAN CORPUSCULAR HEMOGLOBIN 30.2 PG (27.0-31.0); MEAN CORPUSCULAR HGB CONC 31.4 g/dL (33.0-36.5); MEAN CORPUSCULAR VOLUME 96.1 FL (78-98); MEAN PLATELET VOLUME 8.5 FL (7.4-10.4); MONOCYTES % (AUTO) 3.2 % (2-12); NEUTROPHILS # (AUTO) 30.3 X10'3 (1.8-7.7); NEUTROPHILS % (AUTO) 93.9 % (42-75); PLATELET COUNT 287 X10'3 (140-440); RED BLOOD COUNT 2.96 X10'6 (4.70-6.10); RED CELL DISTRIBUTION WIDTH 18.8 % (11.5-14.5)
[2019-12-10 06:22] LABS: WHITE BLOOD COUNT 32.3 X10'3 (4.5-11.0)
--- NOTE | 2019-12-10 06:24 | NUR ---
PAGER ID: [phone] MESSAGE: Jaxon Lara 74M admitted with encephalopathy pt WBC is 32.3 this AM pt currently has levofloxacin q24hrs ordered. thank you jerad gusman [phone]
--- NOTE | 2019-12-10 06:57 | NUR ---
Problems reprioritized. Patient report given, questions answered & plan of care reviewed with Tatyana HILL.
--- NOTE | 2019-12-10 06:57 | NUR ---
Patient in room PCU 3028. I have received report from LIZ Houston and had the opportunity to ask questions and assume patient care. Patient asleep in bed and in no acute distress.
--- NOTE | 2019-12-10 07:00 | NUR ---
Patient in room PCU 3028. I have received report from Lori HILL and had the opportunity to ask questions and assume patient care.
[2019-12-10 07:13] LABS: ANISOCYTOSIS 2+; PLATELET ESTIMATE NORMAL; TOTAL CELLS COUNTED 100
--- NOTE | 2019-12-10 07:26 | NUR ---
Paged Dr. Molina regarding swallow evaluation for patient being NPO. PAGER ID: [phone] MESSAGE: [id number]. Jaxon Lara. Would you like for me to order a swallow evaluation? Thank you. Aga HILL x [phone] Addendum: 12/10/19 at 0757 by Aga Connor RN Orders received to put in for BSS per Dr. Molina.
[2019-12-10] MEDS: budesonide 0.5mg/2ml UD nebule IH SCH ×2 (07:45→20:27)
--- NOTE | 2019-12-10 07:57 | NUR ---
Orders for BSS put in per Dr. Molina.
[2019-12-10] MEDS: K and/or MAG REPLACEMENT MC SCH ×2 (08:00→20:00)
[2019-12-10] MEDS: flecainide 50mg tablet PO SCH ×2 (08:48→19:37)
[2019-12-10] MEDS: enoxaparin 40mg/0.4ml syringe SQ SCH (08:48)
[2019-12-10] MEDS: fluticasone nasal spray 16GM bottle NS SCH (08:48)
[2019-12-10] MEDS: pantoprazole 40mg Tablet.DR PO SCH (08:49)
[2019-12-10] MEDS: losartan 50mg tablet PO SCH (08:50)
[2019-12-10] MEDS: furosemide 20MG tablet PO SCH (08:50)
[2019-12-10] MEDS: carVEDilol 12.5mg tablet PO SCH ×2 (08:50→19:37)
[2019-12-10] MEDS: diltiazem CD 120mg capsule (once-daily) PO SCH ×2 (08:51→19:35)
[2019-12-10] MEDS: levoTHYROXINE 100mcg tablet PO SCH (08:51)
[2019-12-10] MEDS: cloNIDine 0.1 mg tablet PO SCH ×2 (08:51→19:36)
[2019-12-10] MEDS: cholecalciferol (vitamin D) 400 unit tablet PO SCH (08:51)
[2019-12-10] MEDS: levoFLOXACIN-Levaquin 250mg/D5 50 ML IV SCH (08:52)
[2019-12-10] MEDS: potassium Cl 20 mEq SR tablet PO PRN ×3 (09:01→19:35)
[2019-12-10] MEDS: magnesium Cl slow-release 64mg tablet PO PRN ×2 (09:03→19:36)
[2019-12-10 11:00] VITALS: BP 104/67
[2019-12-10] MEDS ORDERED: ondansetron 4mg rapidly disintigrating tab PO PRN (13:35)
[2019-12-10 15:00] VITALS: BP 107/68
--- NOTE | 2019-12-10 17:56 | NUR ---
[place]rientee documentation: I have reviewed and agree with all interventions, assessments performed and documented by LIZ Peacock.
--- NOTE | 2019-12-10 17:57 | NUR ---
[place] Medication Administration: For this medication-pass time frame, all medication were reviewed, dispensed, administered and documented per hospital policy by LIZ Peacock.
--- NOTE | 2019-12-10 18:06 | NUR ---
Problems reprioritized. Patient report given, questions answered & plan of care reviewed with LIZ Baker. Patient stable at transfer of care.
--- NOTE | 2019-12-10 18:07 | NUR ---
Problems reprioritized. Patient report given, questions answered & plan of care reviewed with Samuel RN.
--- NOTE | 2019-12-10 18:34 | NUR ---
Patient in room PCU 3028. I have received report from Aga HILL and had the opportunity to ask questions and assume patient care.
[2019-12-10 19:00] VITALS: BP 126/79
[2019-12-10] MEDS: lactobacillus rhamnosus 10,000 MMU CELLS/CAPSULE PO SCH (19:38)
[2019-12-10] MEDS: atorvastatin 10mg tablet PO SCH (19:45)
[2019-12-10] MEDS: calcitonin,salmon synthetic 200 units/ml inj SQ SCH (19:45)
[2019-12-10 23:00] VITALS: BP 131/81
[2019-12-11 03:00] VITALS: BP 121/75
--- NOTE | 2019-12-11 06:18 | NUR ---
Problems reprioritized. Patient report given, questions answered & plan of care reviewed with Aga HILL.
--- NOTE | 2019-12-11 06:26 | NUR ---
Patient in room PCU 3028. I have received report from LIZ Baker and had the opportunity to ask questions and assume patient care. Patient awake in bed and in no acute distress.
[2019-12-11 06:27] LABS: BASOPHILS % (AUTO) 0 % (0-1); EOSINOPHILS % (AUTO) 0 % (0-6); HEMATOCRIT 31.3 % (42.0-52.0); LYMPHOCYTES # (AUTO) 0.9 X10'3 (1.1-4.8); LYMPHOCYTES % (AUTO) 2.7 % (21-51); MEAN CORPUSCULAR HEMOGLOBIN 30.9 PG (27.0-31.0); MEAN CORPUSCULAR VOLUME 96.5 FL (78-98); MEAN PLATELET VOLUME 8.4 FL (7.4-10.4); MONOCYTES # (AUTO) 0.7 X10'3 (0-0.9); NEUTROPHILS % (AUTO) 95.3 % (42-75); PLATELET COUNT 377 X10'3 (140-440); RED BLOOD COUNT 3.24 X10'6 (4.70-6.10); RED CELL DISTRIBUTION WIDTH 18.4 % (11.5-14.5)
[2019-12-11 06:35] LABS: WHITE BLOOD COUNT 34.6 X10'3 (4.5-11.0)
--- NOTE | 2019-12-11 06:44 | NUR ---
Patient in room PCU 3028. I have received report from Samuel HILL and had the opportunity to ask questions and assume patient care.
--- NOTE | 2019-12-11 06:51 | NUR ---
Paged Dr. Shoemaker regarding critical WBC of 34.6 PAGER ID: [phone] MESSAGE: [id number]. Jaxon Lara. Critical WBC of 34.6. Thank you. Aga HILL x [phone]
[2019-12-11 07:05] LABS: ALANINE AMINOTRANSFERASE 20 U/L (12-78); ALBUMIN 1.9 G/DL (3.4-5.0); ALBUMIN/GLOBULIN RATIO 0.5 (1.1-1.5); ALKALINE PHOSPHATASE 382 IU/L (46-116); ANION GAP 11 (8-16); ASPARTATE AMINO TRANSFERASE 14 U/L (10-37); BILIRUBIN,TOTAL 0.4 MG/DL (0.1-1.0); BLOOD UREA NITROGEN 35 MG/DL (7-18); BUN/CREATININE RATIO 18.2 (5.4-32.0); CHLORIDE 114 MMOL/L (99-107); CREATININE 1.92 MG/DL (0.60-1.10); GLUCOSE 130 MG/DL (70-104); MAGNESIUM 1.6 MG/DL (1.5-2.4); POTASSIUM 3.2 MMOL/L (3.5-5.1); SODIUM 149 MMOL/L (135-145); TOTAL CARBON DIOXIDE 23.7 MMOL/L (24-32); TOTAL PROTEIN 5.8 G/DL (6.4-8.2); eGFR 35 ML/MIN
[2019-12-11 07:08] LABS: CALCIUM 12.7 MG/DL (8.5-10.1)
--- NOTE | 2019-12-11 07:14 | NUR ---
notified of Lab critical for Ca 12.7 .
[2019-12-11] MEDS: budesonide 0.5mg/2ml UD nebule IH SCH ×2 (07:15→19:45)
[2019-12-11 07:21] LABS: ANISOCYTOSIS 2+; PLATELET ESTIMATE NORMAL; TOTAL CELLS COUNTED 100
[2019-12-11] MEDS: normal saline 1000ml 1,000 ML IV SCH (07:46)
[2019-12-11] MEDS: cloNIDine 0.1 mg tablet PO SCH ×2 (07:51→20:23)
[2019-12-11] MEDS: fluticasone nasal spray 16GM bottle NS SCH (07:52)
[2019-12-11] MEDS: levoFLOXACIN-Levaquin 250mg/D5 50 ML IV SCH (07:53)
[2019-12-11] MEDS: potassium Cl 20 mEq SR tablet PO PRN ×2 (07:54→15:19)
[2019-12-11] MEDS: losartan 50mg tablet PO SCH (07:54)
[2019-12-11] MEDS: calcitonin,salmon synthetic 200 units/ml inj SQ SCH (07:54)
[2019-12-11] MEDS: enoxaparin 40mg/0.4ml syringe SQ SCH (07:56)
[2019-12-11] MEDS: cholecalciferol (vitamin D) 400 unit tablet PO SCH (07:56)
[2019-12-11] MEDS: carVEDilol 12.5mg tablet PO SCH ×2 (07:56→20:24)
[2019-12-11] MEDS: furosemide 20MG tablet PO SCH (07:56)
[2019-12-11] MEDS: lactobacillus rhamnosus 10,000 MMU CELLS/CAPSULE PO SCH ×2 (07:56→20:24)
[2019-12-11] MEDS: flecainide 50mg tablet PO SCH ×2 (07:57→20:24)
[2019-12-11] MEDS: levoTHYROXINE 100mcg tablet PO SCH (07:57)
[2019-12-11] MEDS: pantoprazole 40mg Tablet.DR PO SCH (07:57)
[2019-12-11] MEDS: diltiazem CD 120mg capsule (once-daily) PO SCH ×2 (07:57→20:24)
[2019-12-11] MEDS: K and/or MAG REPLACEMENT MC SCH ×2 (08:43→20:00)
--- NOTE | 2019-12-11 09:56 | NUR ---
Sodium bicarbonate not started yet because pharmacy is making it.
[2019-12-11] MEDS: sodium bicarbonate (8.4%) inj. 50 MEQ in dextrose 5%-water 1,000 ML IV SCH ×2 (10:06→17:09)
[2019-12-11 11:00] VITALS: BP 160/99
--- NOTE | 2019-12-11 11:42 | NUR ---
Paged Dr. Molina in regards to clarification on steroid medication order. PAGER ID: [phone] MESSAGE: [id number], Jaxon Lara. Is the Solu-Medrol okay to administer to the pt with the steroid allergy? Thank you. Ayush HILL x [phone]
--- NOTE | 2019-12-11 11:55 | NUR ---
Mechelle Molina for an order of Benadryl for patient. PAGER ID: [phone] MESSAGE: [id number], Jaxon Lara. Can we get an order for Benadryl for adverse reaction to the Solu-Medrol? Thank You. Ayush HILL x [phone] Addendum: 12/11/19 at 1158 by Ayush Casiano RN Received orders from Dr. Molina of 25 mg IV benadryl now and 50 mg IV q6 PRN.
[2019-12-11] MEDS ORDERED: diphenhydrAMINE 50 mg/ml inj IV ONE (12:00)
[2019-12-11] MEDS ORDERED: diphenhydrAMINE 50 mg/ml inj IV PRN (12:00)
[2019-12-11] MEDS: methylPREDNISolone sod succ/PF 40mg inj. IV SCH ×2 (12:43→20:23)
[2019-12-11 15:00] VITALS: BP 116/77
--- NOTE | 2019-12-11 17:24 | NUR ---
[place]rientee documentation: I have reviewed and agree with all interventions, assessments performed and documented by LIZ Peacock.
--- NOTE | 2019-12-11 17:25 | NUR ---
[place] Medication Administration: For this medication-pass time frame, all medication were reviewed, dispensed, administered and documented per hospital policy by LIZ Peacock.
--- NOTE | 2019-12-11 18:13 | NUR ---
Problems reprioritized. Patient report given, questions answered & plan of care reviewed with Samuel RN.
--- NOTE | 2019-12-11 18:13 | NUR ---
Problems reprioritized. Patient report given, questions answered & plan of care reviewed with LIZ Baker. Patient stable at transfer of care.
[2019-12-11 19:00] VITALS: BP 126/67
--- NOTE | 2019-12-11 19:45 | NUR ---
Contrast media form completed. Page sent to MRI to return call when they ready for patient to complete MRI order.
[2019-12-11] MEDS: atorvastatin 10mg tablet PO SCH (20:23)
[2019-12-11 23:00] VITALS: BP 106/75
[2019-12-12] MEDS: sodium bicarbonate (8.4%) inj. 50 MEQ in dextrose 5%-water 1,000 ML IV SCH ×2 (00:11→08:57)
[2019-12-12] MEDS: potassium Cl 20 mEq SR tablet PO PRN (01:57)
[2019-12-12 03:00] VITALS: BP 136/75
[2019-12-12 06:16] LABS: BASOPHILS % (AUTO) 0 % (0-1); EOSINOPHILS % (AUTO) 0 % (0-6); HEMATOCRIT 28.5 % (42.0-52.0); HEMOGLOBIN 9.2 g/dl (14.0-17.9); LYMPHOCYTES # (AUTO) 0.8 X10'3 (1.1-4.8); LYMPHOCYTES % (AUTO) 2.6 % (21-51); MEAN CORPUSCULAR HEMOGLOBIN 31.3 PG (27.0-31.0); MEAN CORPUSCULAR HGB CONC 32.3 g/dL (33.0-36.5); MEAN CORPUSCULAR VOLUME 96.9 FL (78-98); MONOCYTES # (AUTO) 0.5 X10'3 (0-0.9); MONOCYTES % (AUTO) 1.4 % (2-12); NEUTROPHILS # (AUTO) 31.4 X10'3 (1.8-7.7); PLATELET COUNT 328 X10'3 (140-440); RED BLOOD COUNT 2.94 X10'6 (4.70-6.10); RED CELL DISTRIBUTION WIDTH 19.1 % (11.5-14.5)
--- NOTE | 2019-12-12 06:28 | NUR ---
Problems reprioritized. Patient report given, questions answered & plan of care reviewed with Tatyana Thakkar
--- NOTE | 2019-12-12 06:33 | NUR ---
Patient in room PCU 3028. I have received report from Samuel HILL and had the opportunity to ask questions and assume patient care.
[2019-12-12 06:42] LABS: WHITE BLOOD COUNT 32.7 X10'3 (4.5-11.0)
[2019-12-12] MEDS: budesonide 0.5mg/2ml UD nebule IH SCH ×2 (06:44→20:22)
[2019-12-12 06:54] LABS: ALANINE AMINOTRANSFERASE 17 U/L (12-78); ALBUMIN 1.3 G/DL (3.4-5.0); ALBUMIN/GLOBULIN RATIO 0.3 (1.1-1.5); ALKALINE PHOSPHATASE 318 IU/L (46-116); ANION GAP 10 (8-16); ASPARTATE AMINO TRANSFERASE 11 U/L (10-37); BILIRUBIN,TOTAL 0.3 MG/DL (0.1-1.0); BLOOD UREA NITROGEN 37 MG/DL (7-18); BUN/CREATININE RATIO 17.5 (5.4-32.0); CALCIUM 11.2 MG/DL (8.5-10.1); CHLORIDE 111 MMOL/L (99-107); CREATININE 2.12 MG/DL (0.60-1.10); GLUCOSE 225 MG/DL (70-104); MAGNESIUM 1.7 MG/DL (1.5-2.4); POTASSIUM 3.5 MMOL/L (3.5-5.1); SODIUM 146 MMOL/L (135-145); TOTAL CARBON DIOXIDE 25.4 MMOL/L (24-32); TOTAL PROTEIN 5.4 G/DL (6.4-8.2); eGFR 31 ML/MIN
[2019-12-12 06:57] LABS: ANISOCYTOSIS 2+; PLATELET ESTIMATE NORMAL; TOTAL CELLS COUNTED 100; TOXIC GRANULATION 1+
[2019-12-12 06:58] LABS: POLYCHROMASIA FEW
--- NOTE | 2019-12-12 07:09 | NUR ---
Patient in bed and refusing to take am vital signs. Will continue to encourage
[2019-12-12] MEDS: K and/or MAG REPLACEMENT MC SCH ×2 (08:00→20:00)
--- NOTE | 2019-12-12 08:50 | NUR ---
Dr. Trujillo at bedside with patient. New Orders to stop Bicarb drip and start NS @100ml/hr. New orders is to add Docusate daily and PRn Millk of mag if patient still has not had a BM. is mendoza of critical vaule WBC 32.7, No new orders at this time. Will continue to monitor.
[2019-12-12] MEDS: methylPREDNISolone sod succ/PF 40mg inj. IV SCH (08:57)
[2019-12-12] MEDS: lactobacillus rhamnosus 10,000 MMU CELLS/CAPSULE PO SCH ×2 (08:58→22:33)
[2019-12-12] MEDS: cloNIDine 0.1 mg tablet PO SCH ×2 (08:58→22:33)
[2019-12-12] MEDS: carVEDilol 12.5mg tablet PO SCH ×2 (08:58→22:33)
[2019-12-12] MEDS: furosemide 20MG tablet PO SCH (08:58)
[2019-12-12] MEDS: diltiazem CD 120mg capsule (once-daily) PO SCH ×2 (08:58→22:32)
[2019-12-12] MEDS: losartan 50mg tablet PO SCH (08:58)
[2019-12-12] MEDS: pantoprazole 40mg Tablet.DR PO SCH (08:58)
[2019-12-12] MEDS: levoTHYROXINE 100mcg tablet PO SCH (08:58)
[2019-12-12] MEDS: flecainide 50mg tablet PO SCH ×2 (08:58→22:33)
[2019-12-12] MEDS: cholecalciferol (vitamin D) 400 unit tablet PO SCH (08:58)
[2019-12-12] MEDS: fluticasone nasal spray 16GM bottle NS SCH (08:59)
[2019-12-12] MEDS: enoxaparin 40mg/0.4ml syringe SQ SCH (08:59)
[2019-12-12] MEDS ORDERED: pamidronate disodium inj 60 MG in normal saline 500ml IV soln 500 ML IV ONE (09:15)
[2019-12-12] MEDS: normal saline 1000ml 1,000 ML IV SCH (09:59)
[2019-12-12] MEDS ORDERED: magnesium hydroxide 30ml (MOM) UD suspension PO ONE (10:15)
[2019-12-12] MEDS ORDERED: magnesium hydroxide 30ml (MOM) UD suspension PO PRN (10:30)
[2019-12-12 11:00] VITALS: BP 83/50
[2019-12-12 15:00] VITALS: BP 82/47
--- NOTE | 2019-12-12 16:14 | NUR ---
Paged Pharmacy for medication. Please send Zosyn up for patient. Thank you
[2019-12-12] MEDS: piperacillin/tazo 4.5gm/100ml 100 ML IV SCH ×2 (16:25→23:43)
[2019-12-12 18:00] VITALS: BP 94/51
--- NOTE | 2019-12-12 18:39 | NUR ---
Patient in room PCU 3028. I have received report from Tatyana HILL and had the opportunity to ask questions and assume patient care.
--- NOTE | 2019-12-12 18:40 | NUR ---
Problems reprioritized. Patient report given, questions answered & plan of care reviewed with Olivia HILL.
[2019-12-12 22:00] VITALS: BP 100/62
[2019-12-12] MEDS: docusate sod 100mg capsule PO SCH (22:33)
[2019-12-12] MEDS: atorvastatin 10mg tablet PO SCH (22:33)
[2019-12-13] VITALS (13 sets, daily range): BP systolic 69–113; BP diastolic 42–66
[2019-12-13] MEDS: normal saline 1000ml 1,000 ML IV SCH ×2 (03:30→20:13)
[2019-12-13 05:14] LABS: BASOPHILS % (AUTO) 0 % (0-1); EOSINOPHILS % (AUTO) 0 % (0-6); HEMATOCRIT 23.6 % (42.0-52.0); HEMOGLOBIN 7.5 g/dl (14.0-17.9); LYMPHOCYTES # (AUTO) 0.7 X10'3 (1.1-4.8); MEAN CORPUSCULAR HEMOGLOBIN 30.5 PG (27.0-31.0); MEAN CORPUSCULAR HGB CONC 31.7 g/dL (33.0-36.5); MEAN CORPUSCULAR VOLUME 96.1 FL (78-98); MEAN PLATELET VOLUME 8.2 FL (7.4-10.4); MONOCYTES # (AUTO) 1.1 X10'3 (0-0.9); MONOCYTES % (AUTO) 3.1 % (2-12); NEUTROPHILS # (AUTO) 32.9 X10'3 (1.8-7.7); NEUTROPHILS % (AUTO) 94.9 % (42-75); PLATELET COUNT 272 X10'3 (140-440); RED BLOOD COUNT 2.45 X10'6 (4.70-6.10); RED CELL DISTRIBUTION WIDTH 18.7 % (11.5-14.5)
[2019-12-13 05:35] LABS: WHITE BLOOD COUNT 34.7 X10'3 (4.5-11.0)
[2019-12-13 05:41] LABS: ALANINE AMINOTRANSFERASE 22 U/L (12-78); ALBUMIN 1.6 G/DL (3.4-5.0); ALBUMIN/GLOBULIN RATIO 0.5 (1.1-1.5); ALKALINE PHOSPHATASE 250 IU/L (46-116); ANION GAP 10 (8-16); ASPARTATE AMINO TRANSFERASE 19 U/L (10-37); BILIRUBIN,TOTAL 0.3 MG/DL (0.1-1.0); BLOOD UREA NITROGEN 41 MG/DL (7-18); CALCIUM 9.5 MG/DL (8.5-10.1); CHLORIDE 107 MMOL/L (99-107); CREATININE 2.28 MG/DL (0.60-1.10); GLUCOSE 135 MG/DL (70-104); MAGNESIUM 1.5 MG/DL (1.5-2.4); POTASSIUM 3.3 MMOL/L (3.5-5.1); SODIUM 139 MMOL/L (135-145); TOTAL CARBON DIOXIDE 22.1 MMOL/L (24-32); TOTAL PROTEIN 4.6 G/DL (6.4-8.2); eGFR 28 ML/MIN
--- NOTE | 2019-12-13 06:58 | NUR ---
Patient in room PCU 3028. I have received report from Olivia HILL and had the opportunity to ask questions and assume patient care.
--- NOTE | 2019-12-13 07:00 | NUR ---
Problems reprioritized. Patient report given, questions answered & plan of care reviewed with Giselle HILL.
[2019-12-13 07:18] LABS: ANISOCYTOSIS 2+; PLATELET ESTIMATE NORMAL; TOTAL CELLS COUNTED 100
[2019-12-13 07:20] LABS: SCHISTOCYTES FEW; TOXIC GRANULATION 1+
[2019-12-13] MEDS: K and/or MAG REPLACEMENT MC SCH ×2 (08:00→20:00)
[2019-12-13] MEDS: carVEDilol 12.5mg tablet PO SCH ×2 (08:00→20:00)
[2019-12-13] MEDS: diltiazem CD 120mg capsule (once-daily) PO SCH ×2 (08:00→20:00)
[2019-12-13] MEDS: furosemide 20MG tablet PO SCH (08:00)
[2019-12-13] MEDS: losartan 50mg tablet PO SCH (08:00)
[2019-12-13] MEDS: cloNIDine 0.1 mg tablet PO SCH ×2 (08:00→20:00)
[2019-12-13] MEDS: fluticasone nasal spray 16GM bottle NS SCH (08:45)
[2019-12-13] MEDS: piperacillin/tazo 4.5gm/100ml 100 ML IV SCH (08:45)
[2019-12-13] MEDS: enoxaparin 40mg/0.4ml syringe SQ SCH (08:46)
[2019-12-13] MEDS: levoTHYROXINE 100mcg tablet PO SCH (08:46)
[2019-12-13] MEDS: docusate sod 100mg capsule PO SCH ×2 (08:46→20:16)
[2019-12-13] MEDS: cholecalciferol (vitamin D) 400 unit tablet PO SCH (08:46)
[2019-12-13] MEDS: lactobacillus rhamnosus 10,000 MMU CELLS/CAPSULE PO SCH ×2 (08:47→20:16)
[2019-12-13] MEDS: flecainide 50mg tablet PO SCH ×2 (08:47→20:16)
[2019-12-13] MEDS: pantoprazole 40mg Tablet.DR PO SCH (09:01)
[2019-12-13] MEDS ORDERED: potassium chloride 10mEq ER tablet PO ONE (09:10)
--- NOTE | 2019-12-13 09:10 | NUR ---
BP meds held due to low BP - Dr. Trujillo notified about this
[2019-12-13] MEDS: budesonide 0.5mg/2ml UD nebule IH SCH ×2 (10:20→20:02)
[2019-12-13] MEDS ORDERED: potassium Cl 20 mEq SR tablet PO ONE (10:40)
--- NOTE | 2019-12-13 11:30 | NUR ---
Paged Dr. Trujillo PAGER ID: [phone] MESSAGE: Surgical Flr Savanna HILL ext [phone]. RE: Giacomo Lara. Patient has (+) orthostatic BP during attempt to get up by PT. Lying 94/54, HR 59 sitting 96/58 HR 64, standing 69/45 HR 57 (+) dizziness Patient was placed on Trendelenburg position and PT placed him back to bed Addendum: 12/13/19 at 1144 by Savanna Booth RN Dr. Trujillo called back, received order to give 500ml of NS
[2019-12-13] MEDS ORDERED: normal saline 500ml IV soln 500 ML IV ONE (11:35)
--- NOTE | 2019-12-13 11:59 | NUR ---
BP 69/42 HR 58, NS 500ml bolus started
--- NOTE | 2019-12-13 12:30 | NUR ---
BP 89/49, HR 58 after bolus completed. Edgar RN, charge nurse reported. Will notify
--- NOTE | 2019-12-13 12:33 | NUR ---
PAGER ID: [phone] MESSAGE: JUAN Corrales RN ext [phone].RE: Giacomo Lara. Patient BP 89/49, HR 58 after 500ml NS bolus given
--- NOTE | 2019-12-13 15:25 | NUR ---
Dr. Trujillo stated that he was informed by Bindery Worker that patient family requesting hospice referral.
--- NOTE | 2019-12-13 15:30 | NUR ---
Dr. Trujillo instructed me to stop the antibiotic order since patient will be going hospice
--- NOTE | 2019-12-13 18:57 | NUR ---
Problems reprioritized. Patient report given, questions answered & plan of care reviewed with Sonya HILL.
--- NOTE | 2019-12-13 19:00 | NUR ---
Patient in room PCU 3028. I have received report from LIZ FRANKLIN and had the opportunity to ask questions and assume patient care.
[2019-12-13] MEDS: atorvastatin 10mg tablet PO SCH (20:16)
[2019-12-14] VITALS (7 sets, daily range): BP systolic 102–130; BP diastolic 63–78
[2019-12-14] MEDS: normal saline 1000ml 1,000 ML IV SCH ×2 (02:10→15:51)
[2019-12-14 05:27] LABS: BASOPHILS % (AUTO) 0.1 % (0-1); EOSINOPHILS % (AUTO) 0 % (0-6); HEMATOCRIT 24.2 % (42.0-52.0); HEMOGLOBIN 7.8 g/dl (14.0-17.9); LYMPHOCYTES # (AUTO) 0.7 X10'3 (1.1-4.8); LYMPHOCYTES % (AUTO) 2.5 % (21-51); MEAN CORPUSCULAR HEMOGLOBIN 30.6 PG (27.0-31.0); MEAN CORPUSCULAR HGB CONC 32.1 g/dL (33.0-36.5); MEAN CORPUSCULAR VOLUME 95.2 FL (78-98); MEAN PLATELET VOLUME 8.2 FL (7.4-10.4); MONOCYTES # (AUTO) 1.6 X10'3 (0-0.9); MONOCYTES % (AUTO) 5.3 % (2-12); NEUTROPHILS # (AUTO) 27.2 X10'3 (1.8-7.7); NEUTROPHILS % (AUTO) 92.1 % (42-75); PLATELET COUNT 273 X10'3 (140-440); RED BLOOD COUNT 2.55 X10'6 (4.70-6.10); RED CELL DISTRIBUTION WIDTH 18.9 % (11.5-14.5)
[2019-12-14 05:33] LABS: ALANINE AMINOTRANSFERASE 26 U/L (12-78); ALBUMIN 1.6 G/DL (3.4-5.0); ALBUMIN/GLOBULIN RATIO 0.6 (1.1-1.5); ALKALINE PHOSPHATASE 239 IU/L (46-116); ANION GAP 10 (8-16); ASPARTATE AMINO TRANSFERASE 21 U/L (10-37); BILIRUBIN,TOTAL 0.2 MG/DL (0.1-1.0); BLOOD UREA NITROGEN 45 MG/DL (7-18); BUN/CREATININE RATIO 19.3 (5.4-32.0); CALCIUM 8.9 MG/DL (8.5-10.1); CHLORIDE 108 MMOL/L (99-107); CREATININE 2.33 MG/DL (0.60-1.10); GLUCOSE 93 MG/DL (70-104); MAGNESIUM 1.6 MG/DL (1.5-2.4); SODIUM 141 MMOL/L (135-145); TOTAL CARBON DIOXIDE 23.2 MMOL/L (24-32); TOTAL PROTEIN 4.5 G/DL (6.4-8.2); eGFR 28 ML/MIN
[2019-12-14 05:47] LABS: WHITE BLOOD COUNT 29.5 X10'3 (4.5-11.0)
--- NOTE | 2019-12-14 05:53 | NUR ---
PAGED [phone] [facility]. WBC 29.5 AND K 3.0. HE IS NOT ON POTTASIUM PROTOCOL AFTER 3DAYS BEING HERE.
[2019-12-14] MEDS ORDERED: magnesium Cl slow-release 64mg tablet PO PRN (05:55)
[2019-12-14] MEDS ORDERED: potassium CL 10mEq/100ml bag 100 ML IV PRN (05:55)
[2019-12-14] MEDS ORDERED: magnesium 4gm in 100ml NS 100 ML IV PRN (05:55)
[2019-12-14] MEDS ORDERED: potassium Cl 20 mEq SR tablet PO PRN (05:55)
[2019-12-14] MEDS: potassium Cl 20 mEq SR tablet PO PRN ×3 (06:01→15:50)
[2019-12-14 06:25] LABS: ANISOCYTOSIS 1+; PLATELET ESTIMATE NORMAL; TOTAL CELLS COUNTED 100
[2019-12-14 06:26] LABS: ELLIPTOCYTES 1+
--- NOTE | 2019-12-14 06:26 | NUR ---
Patient in room PCU 3028. I have received report from Sonya HILL and had the opportunity to ask questions and assume patient care.
--- NOTE | 2019-12-14 06:29 | NUR ---
Problems reprioritized. Patient report given, questions answered & plan of care reviewed with LIZ BROWN.
[2019-12-14] MEDS: budesonide 0.5mg/2ml UD nebule IH SCH ×2 (08:00→18:50)
[2019-12-14] MEDS: docusate sod 100mg capsule PO SCH ×2 (08:00→20:00)
[2019-12-14] MEDS: diltiazem CD 120mg capsule (once-daily) PO SCH ×2 (08:01→20:10)
[2019-12-14] MEDS: losartan 50mg tablet PO SCH (08:02)
[2019-12-14] MEDS: cholecalciferol (vitamin D) 400 unit tablet PO SCH (08:02)
[2019-12-14] MEDS: lactobacillus rhamnosus 10,000 MMU CELLS/CAPSULE PO SCH ×2 (08:02→20:10)
[2019-12-14] MEDS: cloNIDine 0.1 mg tablet PO SCH ×2 (08:03→20:10)
[2019-12-14] MEDS: fluticasone nasal spray 16GM bottle NS SCH (08:03)
[2019-12-14] MEDS: pantoprazole 40mg Tablet.DR PO SCH (08:04)
[2019-12-14] MEDS: levoTHYROXINE 100mcg tablet PO SCH (08:04)
[2019-12-14] MEDS: flecainide 50mg tablet PO SCH ×2 (08:05→20:10)
[2019-12-14] MEDS: carVEDilol 12.5mg tablet PO SCH ×2 (08:06→20:10)
[2019-12-14] MEDS: enoxaparin 30mg/0.3ml syringe SQ SCH (08:07)
[2019-12-14] MEDS: K and/or MAG REPLACEMENT MC SCH ×2 (08:13→20:00)
--- NOTE | 2019-12-14 18:32 | NUR ---
Problems reprioritized. Patient report given, questions answered & plan of care reviewed with Letha HILL. Patient stable at transfer of care.
--- NOTE | 2019-12-14 19:03 | NUR ---
Patient in room PCU 3028. I have received report from Miladys HILL and had the opportunity to ask questions and assume patient care.
[2019-12-14] MEDS: atorvastatin 10mg tablet PO SCH (20:10)
[2019-12-15 02:00] VITALS: BP 122/72
[2019-12-15 05:27] LABS: ALANINE AMINOTRANSFERASE 31 U/L (12-78); ALBUMIN 1.5 G/DL (3.4-5.0); ALBUMIN/GLOBULIN RATIO 0.5 (1.1-1.5); ALKALINE PHOSPHATASE 255 IU/L (46-116); ANION GAP 11 (8-16); ASPARTATE AMINO TRANSFERASE 23 U/L (10-37); BILIRUBIN,TOTAL 0.3 MG/DL (0.1-1.0); BLOOD UREA NITROGEN 36 MG/DL (7-18); BUN/CREATININE RATIO 19.1 (5.4-32.0); CALCIUM 8.6 MG/DL (8.5-10.1); CHLORIDE 111 MMOL/L (99-107); CREATININE 1.88 MG/DL (0.60-1.10); GLUCOSE 97 MG/DL (70-104); MAGNESIUM 1.6 MG/DL (1.5-2.4); SODIUM 140 MMOL/L (135-145); TOTAL CARBON DIOXIDE 18.1 MMOL/L (24-32); TOTAL PROTEIN 4.8 G/DL (6.4-8.2); eGFR 35 ML/MIN
[2019-12-15 05:28] LABS: POTASSIUM 4.1 MMOL/L (3.5-5.1)
--- NOTE | 2019-12-15 06:17 | NUR ---
Problems reprioritized. Patient report given, questions answered & plan of care reviewed with Miladys HILL.
[2019-12-15 06:30] VITALS: BP 114/77
--- NOTE | 2019-12-15 06:34 | NUR ---
Patient in room PCU 3028. I have received report from LIZ Vegas and had the opportunity to ask questions and assume patient care.
[2019-12-15] MEDS: docusate sod 100mg capsule PO SCH (08:00)
[2019-12-15] MEDS: budesonide 0.5mg/2ml UD nebule IH SCH (08:12)
[2019-12-15] MEDS: fluticasone nasal spray 16GM bottle NS SCH (08:18)
[2019-12-15] MEDS: cloNIDine 0.1 mg tablet PO SCH (08:19)
[2019-12-15] MEDS: enoxaparin 30mg/0.3ml syringe SQ SCH (08:19)
[2019-12-15] MEDS: cholecalciferol (vitamin D) 400 unit tablet PO SCH (08:19)
[2019-12-15] MEDS: pantoprazole 40mg Tablet.DR PO SCH (08:20)
[2019-12-15] MEDS: losartan 50mg tablet PO SCH (08:20)
[2019-12-15] MEDS: diltiazem CD 120mg capsule (once-daily) PO SCH (08:20)
[2019-12-15] MEDS: flecainide 50mg tablet PO SCH (08:20)
[2019-12-15] MEDS: carVEDilol 12.5mg tablet PO SCH (08:20)
[2019-12-15] MEDS: lactobacillus rhamnosus 10,000 MMU CELLS/CAPSULE PO SCH (08:21)
[2019-12-15] MEDS: K and/or MAG REPLACEMENT MC SCH (08:23)
[2019-12-15] MEDS: levoTHYROXINE 100mcg tablet PO SCH (08:29)
[2019-12-15 11:00] VITALS: BP 82/52
[2019-12-15 11:48] VITALS: BP 85/51
--- NOTE | 2019-12-15 11:52 | NUR ---
Page to Cassandra. PAGER ID: [phone] MESSAGE: Patient Jane 3028-B. BP 85/51 HR 53. Patient pale and weak but that has been his baseline. H/H 7.8/24.2. Please advise. Cassandra callback, no change in orders.
--- NOTE | 2019-12-15 14:01 | NUR ---
PAGER ID: [phone] MESSAGE: Patient Jane 3028-B. Saw discharge was complete, just need the discharge order please. Calixtojuan joseHattie Hook [facility] [phone]
--- NOTE | 2019-12-15 15:00 | NUR ---
Patient stable for discharge per MD order. All discharge instructions reviewed with patient and law clerk and all questions answered. PIV discontinued, cannula intact. Telemetry discontinued, telephone directory deliverer notified. All belongings collected and sent with patient. Patient picked up in private vehicle by family member, wheeled to lobby by staff.
== END 2019-12-15 14:53 | disposition home health service (06) | DRG 686 ==
LOC: ER 11:58 → ED HOLD 15:46 → PCU 3S 22:57
PROVIDERS: ADMIT Family Medicine; ATTEND Family Medicine
DX: C67.5 Malignant neoplasm of bladder neck (principal); G93.41 Metabolic encephalopathy; E43 Unspecified severe protein-calorie malnutrition; I13.0 Hypertensive heart and chronic kidney disease with heart failure and stage 1 through stage 4 chronic kidney disease, or unspecified chronic kidney disease; J98.11 Atelectasis; N13.30 Unspecified hydronephrosis; N17.9 Acute kidney failure, unspecified; I50.32 Chronic diastolic (congestive) heart failure; E87.1 Hypo-osmolality and hyponatremia; E87.0 Hyperosmolality and hypernatremia; E83.52 Hypercalcemia; E16.2 Hypoglycemia, unspecified; I48.91 Unspecified atrial fibrillation; E05.90 Thyrotoxicosis, unspecified without thyrotoxic crisis or storm; K21.9 Gastro-esophageal reflux disease without esophagitis; D72.829 Elevated white blood cell count, unspecified; N18.9 Chronic kidney disease, unspecified; E87.6 Hypokalemia; J45.909 Unspecified asthma, uncomplicated; D63.8 Anemia in other chronic diseases classified elsewhere; E03.9 Hypothyroidism, unspecified; Z68.26 Body mass index [BMI] 26.0-26.9, adult; Z79.899 Other long term (current) drug therapy; Z85.46 Personal history of malignant neoplasm of prostate; Z85.51 Personal history of malignant neoplasm of bladder; Z93.6 Other artificial openings of urinary tract status; Z88.6 Allergy status to analgesic agent; Z88.4 Allergy status to anesthetic agent; Z88.5 Allergy status to narcotic agent; Z88.8 Allergy status to other drugs, medicaments and biological substances
CPT/HCPCS: 36415; 70450; 71045; 80053; 81001; 82330; 82948; 83605; 83735; 84132; 84145; 84443; 85025; 85610; 85730; 87040; 87081; 87088; 92508; 92616; 93005; 94640; 94668; 94760; 97110; 97112; 97116; 97161; 97530; 99285; G0378; J0630; J1200; J1650; J1956; J2430; J2543; J2920; J7030; J7040; J7626